=== PATIENT | male | born 1965 | race Two or more races ===

== ENCOUNTER 2016-11-10 10:28 | Emergency (ER) | payer MEDICAID ==
--- NOTE | 2016-11-10 11:22 | CPEKG ---
Heart Rate: 110 RR Interval: 545 P-R Interval: 132 QRSD Interval: 74 QT Interval: 324 QTC Interval: 439 P Petty: 21 QRS Petty: -8 T Wave Petty: 20 EKG Severity - OTHERWISE NORMAL ECG - EKG Impression: SINUS TACHYCARDIA Electronically Signed By: Becky Hernandez 10-Nov-2016 15:18:44
--- NOTE | 2016-11-10 11:50 | EDPHY ---
H & P Time Seen by Provider: 11/10/16 11:40 HPI/ROS: CHIEF COMPLAINT: Chest pain HISTORY OF PRESENT ILLNESS: Patient is a 51-year-old male with a history of pulmonary embolus who presents emergency department with left-sided chest pain. Patient states that he has had recent psychiatric evaluation. However, he was concerned because he has developed 4 days of left-sided chest pain. It has been constant. It is not pleuritic. It is not positional. He denies nausea or vomiting. No leg pain or swelling. No cough or shortness of breath. This feels different than his previous pulmonary embolus. Patient was concerned because he also lost his medications. REVIEW OF SYSTEMS: My complete review of systems is negative except as mentioned in the HPI. Past Medical/Surgical History: Includes diabetes, pulmonary embolus, hypertension, chronic back pain, spinal stenosis Social history: The patient smokes Smoking Status: Current every day smoker Physical Exam: Vitals noted GENERAL: No acute distress, alert. HEENT: Eyes normal to inspection, normal pharynx, no signs of dehydration. NECK: No thyromegaly, no lymphadenopathy, supple. RESPIRATORY: Clear to auscultation bilaterally, no rales, rhonchi or wheezing. CVS: Regular rate and rhythm, no rubs, murmurs, or gallops. ABDOMEN: Soft, nontender, nondistended, no organomegaly. BACK: Normal to inspection, no CVA tenderness. SKIN: Normal color, no rash, warm, dry. No pallor. EXTREMITIES: No pedal edema, no calf tenderness, no Homans sign or cords, no joint swelling. NEURO/PSYCH: Alert and oriented x3, normal mood and affect, normal motor sensory exam. Constitutional: Initial Vital Signs Temperature (C) 36.9 C 11/10/16 10:41 Heart Rate 121 H 11/10/16 10:41 Respiratory Rate 17 11/10/16 10:41 Blood Pressure 116/92 H 11/10/16 10:41 O2 Sat (%) 95 11/10/16 10:41 O2 Delivery Mode Room Air Allergies/Adverse Reactions: No Known Allergies Allergy (Unverified 11/10/16 10:40) Home Medications: Medication Instructions Recorded Amitriptyline 100 mg 05/02/16 Gabapentin 05/02/16 Metoprolol Succinate 05/02/16 SUBOXONE 8mg/2mg 11/10/16 Medical Decision Making ED Course/Re-evaluation: In the emergency department I discussed possible etiologies with the patient. I reviewed the records the patient brought with him from outside facilities. Laboratory studies, EKG and chest x-ray were ordered. EKG shows sinus tachycardia at 110, normal axis, normal intervals. There are no ST or T-wave abnormalities. I had case management evaluate the patient. They will arrange outpatient follow -up for replacement of his baseline medications. I reviewed the patient's laboratory studies. Troponin was negative. D-dimer was elevated at 1.75. White count was mildly elevated. Chemistry panel is unremarkable. I discussed the results with the patient. Patient consented to CT angiogram. CT angiogram: Please refer the dictated report by the radiologist. No pulmonary embolus or acute abnormality noted. Discussed the results with the patient. Answered all his questions. He was given warnings prior to leaving. He will return with worsening symptoms. Differential Diagnosis: My differential includes but is not limited to ACS, acute AR, pneumonia, pneumothorax, pulmonary embolus, dissection, aneurysm - Data Points Laboratory Results: Laboratory Results 11/10/16 11:25 11/10/16 11:25 11/10/16 11/10/16 11/10/16 12:04 11:25 11:25 WBC 12.16 10^3/uL H 10^3/uL (3.80-9.50) RBC 4.82 10^6/uL 10^6/uL (4.40-6.38) Hgb 14.5 g/dL g/dL (13.7-17.5) Hct 42.8 % % (40.0-51.0) MCV 88.8 fL fL (81.5-99.8) MCH 30.1 pg pg (27.9-34.1) MCHC 33.9 g/dL g/dL (32.4-36.7) RDW 13.2 % % (11.5-15.2) Plt Count 397 10^3/uL 10^3/uL (150-400) MPV 9.2 fL fL (8.7-11.7) Neut % (Auto) 76.5 % H % (39.3-74.2) Lymph % (Auto) 16.4 % % (15.0-45.0) Crockett % (Auto) 5.6 % % (4.5-13.0) Eos % (Auto) 0.4 % L % (0.6-7.6) Baso % (Auto) 0.7 % % (0.3-1.7) Nucleat RBC Rel Count 0.0 % % (0.0-0.2) Absolute Neuts (auto) 9.30 10^3/uL H 10^3/uL (1.70-6.50) Absolute Lymphs (auto) 2.00 10^3/uL 10^3/uL (1.00-3.00) Absolute Monos (auto) 0.68 10^3/uL 10^3/uL (0.30-0.80) Absolute Eos (auto) 0.05 10^3/uL 10^3/uL (0.03-0.40) Absolute Basos (auto) 0.08 10^3/uL 10^3/uL (0.02-0.10) Absolute Nucleated RBC 0.00 10^3/uL 10^3/uL (0-0.01) Immature Gran % 0.4 % % (0.0-1.1) Immature Gran # 0.05 10^3/uL 10^3/uL (0.00-0.10) D-Dimer 1.75 ug/mLFEU H ug/mLFEU (0.00-0.50) Sodium 143 mEq/L mEq/L (134-144) Potassium 3.9 mEq/L mEq/L (3.5-5.2) Chloride 108 mEq/L mEq/L (97-110) Carbon Dioxide 25 mEq/l mEq/l (22-31) Anion Gap 10 mEq/L mEq/L (8-16) BUN 9 mg/dL mg/dL (7-23) Creatinine 0.9 mg/dL mg/dL (0.7-1.3) Estimated GFR > 60 Glucose 180 mg/dL H mg/dL (70-100) Calcium 9.5 mg/dL mg/dL (8.5-10.4) Troponin I < 0.012 ng/mL ng/mL (0-0.034) Medications Given: Discontinued Medications Aspirin (Aspirin) 324 mg PO EDNOW ONE Stop: 11/10/16 12:04 Last Admin: 11/10/16 12:22 Dose: 324 mg Sodium Chloride (Ns) 500 mls @ 0 mls/hr IV ONCE ONE PRN Reason: As Directed Stop: 11/10/16 12:04 Last Admin: 11/10/16 12:22 Dose: 500 mls Ketorolac Tromethamine (Toradol) 15 mg IVP EDNOW ONE Stop: 11/10/16 12:50 Last Admin: 11/10/16 12:56 Dose: 15 mg Departure - Departure Disposition: Home, Routine, Self-Care Clinical Impression: Chest pain Qualifiers: Chest pain type: unspecified Qualified Code(s): R07.9 - Chest pain, unspecified Condition: Good Instructions: Chest Pain (ED) Additional Instructions: Return with increasing chest pain, shortness of breath, fever or any other concerns. Referrals: [facility],. [Clinic] - 2-3 days without fail
[2016-11-10] MEDS ORDERED: NS 500 ML IV ONE (12:03)
[2016-11-10] MEDS ORDERED: ASPIRIN 81 MG CHEWABLE TAB PO ONE (12:03)
[2016-11-10 12:09] LABS: % IMMATURE GRANULYOCYTES 0.4 % (0.0-1.1); ABSOLUTE IMMATURE GRANULOCYTES 0.05 10^3/uL (0.00-0.10); ADD DIFF? NO; ADD MORPH? NO; ADD SCAN? NO; ATYPICAL LYMPHOCYTE FLAG 0 (0-99); FRAGMENT RBC FLAG 0 (0-99); HEMATOCRIT 42.8 % (40.0-51.0); HEMOGLOBIN 14.5 g/dL (13.7-17.5); LEFT SHIFT FLG 0 (0-99); LIPEMIA HEMOLYSIS FLAG 90 (0-99); MEAN CELL HEMOGLOBIN 30.1 pg (27.9-34.1); MEAN CELL HEMOGLOBIN CONCENTR. 33.9 g/dL (32.4-36.7); MEAN CELL VOLUME 88.8 fL (81.5-99.8); MEAN PLATELET VOLUME 9.2 fL (8.7-11.7); PLATELET CLUMPS FLAG 0 (0-99); PLATELET COUNT 397 10^3/uL (150-400); RED BLOOD CELL COUNT 4.82 10^6/uL (4.40-6.38); RED CELL DISTRIBUTION WIDTH 13.2 % (11.5-15.2)
[2016-11-10 12:20] LABS: ANION GAP 10 mEq/L (8-16); CALCIUM 9.5 mg/dL (8.5-10.4); CARBON DIOXIDE 25 mEq/l (22-31); CHLORIDE 108 mEq/L (97-110); CREATININE 0.9 mg/dL (0.7-1.3); GLOMERULAR FILTRATION RATE > 60; GLUCOSE 180 mg/dL (70-100); POTASSIUM 3.9 mEq/L (3.5-5.2); SODIUM 143 mEq/L (134-144)
[2016-11-10 12:31] LABS: TROPONIN I < 0.012 ng/mL (0-0.034)
[2016-11-10] MEDS ORDERED: KETOROLAC 15 MG/1 ML SDV IVP ONE (12:49)
[2016-11-10] MEDS ORDERED: IOPAMIDOL (ISOVUE 370) 100 ML BTL IV ONE (12:49)
[2016-11-10 14:06] VITALS: BP 121/84
[2016-11-10 14:21] VITALS: PULSE 98; RESP 20; TEMP 98.4; O2SAT 98
== END 2016-11-10 14:28 | disposition home or self-care (01) ==
DX: R07.9 Chest pain, unspecified (principal); E11.9 Type 2 diabetes mellitus without complications; I10 Essential (primary) hypertension; F17.200 Nicotine dependence, unspecified, uncomplicated
CPT/HCPCS: 96374; J1885; Q9967